=== PATIENT | male | born 1950 | race African-American/Black ===

== ENCOUNTER 2018-03-10 11:47 | Observation (INO) | payer SELFPAY ==
[~2018-03-10] VITALS: Ht 167.6 cm; Wt 94.6 kg
[2018-03-10 12:13] LABS: BASO % 0.6 %; BASO ABS # 0.02 K/uL (0-0.2); EOS % 0.6 %; EOS ABS # 0.02 K/uL (0-0.5); HEMATOCRIT 42.8 % (42-52); HEMOGLOBIN 13.7 g/dL (14.0-18.0); IG# 0.01 K/uL (0.00-0.02); LYMPH % 44.9 %; LYMPH ABS # 1.54 K/uL (1.2-3.4); MEAN CORPUSCULAR HEMOGLOBIN 23.7 pg (25-34); MEAN PLATELET VOLUME 10.7 fL (7.4-10.4); MONO ABS # 0.55 K/uL (0.11-0.59); NEUT % 37.6 %; NEUT ABS # 1.29 K/uL (1.4-6.5); PLATELET COUNT 184 K/uL (130-400); RED CELL DISTRIBUTION WIDTH CV 16.5 % (11.5-14.5); RED CELL DISTRIBUTION WIDTH SD 43.4 fL (36.4-46.3); WHITE BLOOD COUNT 3.43 K/uL (4.8-10.8)
[2018-03-10] MEDS ORDERED: AMLO10TA3 PO (12:30)
[2018-03-10] MEDS ORDERED: DUTA1CAP25 PEG (12:30)
[2018-03-10] MEDS ORDERED: ASPI81TA28 PO (12:30)
[2018-03-10] MEDS ORDERED: VALS160T60 PO (12:30)
--- NOTE | 2018-03-10 12:32 | DIAGNOSTIC IMAGING REPORT ---
CHEST ONE VIEW PORTABLE CLINICAL HISTORY: 68 years-old Male presenting with Chest Pain. TECHNIQUE: Portable upright AP view of the chest was obtained. COMPARISON: None. FINDINGS: Cardiomediastinal silhouette normal. Calcified granulomata noted. No other focal opacity. No large effusion or pneumothorax. Osseous structures normal. Upper abdomen normal. IMPRESSION: 1. No acute cardiopulmonary disease. Electronically signed by: Jesus Fair M.D. 03/10/2018 12:30 PM Dictated Date/Time: 03/10/2018 12:30 PM
[2018-03-10 12:52] LABS: BLOOD UREA NITROGEN 16 mg/dl (7-18); CALCIUM 8.3 mg/dl (8.5-10.1); CARBON DIOXIDE 25 mmol/L (21-32); CKMB 2.2 ng/ml (0.5-3.6); CREATININE 1.07 mg/dl (0.60-1.40); GLUCOSE 147 mg/dl (70-99); SODIUM 134 mmol/L (136-145)
[2018-03-10] MEDS ORDERED: ONDANSETRON INJ 2 MG/ML 2 ML VIAL IV PRN (13:30)
[2018-03-10] MEDS ORDERED: ACETAMINOPHEN 325 MG TAB PO PRN (13:30)
[2018-03-10] MEDS ORDERED: MAGNESIUM HYDROXIDE SUSP 30 ML UDC PO PRN (13:30)
[2018-03-10] MEDS ORDERED: POLYETHYLENE (MIRALAX) 17 GM PACK PO PRN (13:30)
[2018-03-10] MEDS ORDERED: NITROGLYCERIN 0.4 MG SL PER TAB CHARGE SL PRN ×2 (13:30)
[2018-03-10] MEDS ORDERED: ALUMINUM/MAGNESIUM/SIMETH (MAALOX MAX) 30 ML UDC PO PRN (13:30)
[2018-03-10] MEDS ORDERED: ZOLPIDEM TARTRATE 5 MG TAB PO PRN (13:30)
[2018-03-10] MEDS ORDERED: MoRPHine SULFATE 2 MG/ML CARP IV PRN (13:30)
[2018-03-10 13:59] LABS: POTASSIUM 3.6 mmol/L (3.5-5.1)
--- NOTE | 2018-03-10 14:02 | History and Physical ---
History & Physical Date & Time of Service: Mar 10, 2018 at 13:57 Chief Complaint: Chest Pressure/Sob Primary Care Physician: No Doctor, Assigned History of Present Illness Source: patient, hospital records, other 68 y/o M Hx HTN, HPL, BPH, diet-controlled diabetes. Presents with intermittent central CP accompanied by SOB. Denies radiation of the pain, N/V or diaphoresis. He does state that he has had a degree of exertional dyspnea recently. He denies a previous history of coronary disease. His CP was relieved by NTG. On arrival to the ER, an initial EKG was concerning for anterior elevations, however, this was limited to a single lead and without reciprocal changes. Initial troponin was negative, although A POC trop was (+). The pt was evaluated by cardiology who did not feel that this qualified as a STEMI. Past Medical/Surgical History 1) HTN 2) HPL 3) Diet-controlled DM 4) BPH Family History Mother at age 95 owing to sepsis from a lower extremity wound. She may have been diabetic. Father suddenly in his 70s. The cause was not determined. Social History The pt hails from [place]. He is retired and does not have a history of smoking or alcohol use. Smoking Status: Never Smoker Allergies Coded Allergies: No Known Allergies (Unverified , 03/10/18) Home Medications Scheduled Amlodipine (Norvasc), 10 MG PO QAM Aspirin (Aspirin Ec), 75 MG PO DAILY Dutasteride-Tamsulosin HCl (Dutasteride/Tamsulosin Hc 0.5-0.4 mg), 1 CAP PEG DAILY Valsartan/Hctz (Diovan Hct 160MG/25MG), 0.5 TAB PO QAM Review of Systems Constitutional: No fever, No chills, No sweats Eyes: No worsening of vision ENT: No hearing loss, No unusual epistaxis, No nasal symptoms Respiratory: + dyspnea on exertion Cardiovascular: + chest pain Abdomen: No pain, No nausea, No vomiting Musculoskeletal: No joint pain Genitourinary - Male: No hematuria, No dysuria Neurologic: No memory loss, No paralysis Psychiatric: No depression symptoms Hematologic / Lymphatic: No abnormal bleeding/bruising Integumentary: No rash Allergic / Immunologic: No environmental allergies Physical Exam Vital Signs Date Time Temp Pulse Resp B/P (MAP) Pulse Ox O2 Delivery O2 Flow Rate FiO2 03/10/18 13:19 60 14 140/73 97 Room Air 03/10/18 12:04 97 Room Air 03/10/18 11:58 82 03/10/18 11:54 36.7 80 20 138/74 98 Room Air Diagnostics Laboratory Results Results Past 24 Hours Test 03/10/18 11:55 03/10/18 12:01 03/10/18 13:25 03/10/18 13:27 Range/Units White Blood Count 3.43 4.8-10.8 K/uL Red Blood Count 5.78 4.7-6.1 M/uL Hemoglobin 13.7 14.0-18.0 g/dL Hematocrit 42.8 42-52 % Mean Corpuscular Volume 74.0 80-100 fL Mean Corpuscular Hemoglobin 23.7 25-34 pg Mean Corpuscular Hemoglobin Concent 32.0 32-36 g/dl Platelet Count 184 130-400 K/uL Mean Platelet Volume 10.7 7.4-10.4 fL Neutrophils (%) (Auto) 37.6 % Lymphocytes (%) (Auto) 44.9 % Monocytes (%) (Auto) 16.0 % Eosinophils (%) (Auto) 0.6 % Basophils (%) (Auto) 0.6 % Neutrophils # (Auto) 1.29 1.4-6.5 K/uL Lymphocytes # (Auto) 1.54 1.2-3.4 K/uL Monocytes # (Auto) 0.55 0.11-0.59 K/uL Eosinophils # (Auto) 0.02 0-0.5 K/uL Basophils # (Auto) 0.02 0-0.2 K/uL RDW Standard Deviation 43.4 36.4-46.3 fL RDW Coefficient of Variation 16.5 11.5-14.5 % Immature Granulocyte % (Auto) 0.3 % Immature Granulocyte # (Auto) 0.01 0.00-0.02 K/uL Sodium Level 134 136-145 mmol/L Potassium Level 3.5-5.1 mmol/L Chloride Level 106 98-107 mmol/L Carbon Dioxide Level 25 21-32 mmol/L Anion Gap 3.0 3-11 mmol/L Blood Urea Nitrogen 16 7-18 mg/dl Creatinine 1.07 0.60-1.40 mg/dl Estimated GFR () 81.7 Estimated GFR (Non- 70.5 BUN/Creatinine Ratio 15.0 10-20 Random Glucose 147 70-99 mg/dl Calcium Level 8.3 8.5-10.1 mg/dl Total Creatine Kinase 39-308 U/L Creatine Kinase MB 2.2 0.5-3.6 ng/ml Creatine Kinase MB Ratio 0-3.0 Troponin I < 0.015 0-0.045 ng/ml Bedside Troponin I 0.070 0-0.045 ng/ml Prothrombin Time 11.0 9.0-12.0 SECONDS Prothromb Time International Ratio 1.0 0.9-1.1 EKG 1) Sinus - Minimal elevations in V2 - T waves flat in III 2) Anterior elevation in single lead is more pronounced on repeat EKG Impression Assessment and Plan 68 y/o M Hx HTN, HPL, BPH, diet-controlled diabetes. Presents with intermittent central CP accompanied by SOB. Denies radiation of the pain, N/V or diaphoresis. He does state that he has had a degree of exertional dyspnea recently. He denies a previous history of coronary disease. His CP was relieved by NTG. On arrival to the ER, an initial EKG was concerning for anterior elevations, however, this was limited to a single lead and without reciprocal changes. Initial troponin was negative, although A POC trop was (+). The pt was evaluated by cardiology who did not feel that this qualified as a STEMI. 1) CP - suspicious for evolving ischemia. Risk factors of HTN, DM, HPL, age, male - possible family history. Placed on full-dose Heparin, ASA, Statin. His HR has been around 60 so that we have held off on a B davin. Serial enzymes are pending. [employer] Manual [employer] Therapist is consulted and an echo is requested. 2) HTN, HPL - we have increased his statin dose and continued Valsartan/HCTZ for now. 3) DM - diet-controlled - he will be placed on a sliding scale while hospitalized. 4) BPH - Cont Flomax/Dutasteride 5) Microcytic anemia is present on current labs. He may have Thalassemia minor considering his ethnicity. As he is being placed on Heparin, we will repeat an Hb this evening. Full code - Full-dose Heparin Total time for this admit including review of labs, meds, imaging, records - discussion with pt and ER attending - 36 min Resuscitation Status VTE Prophylaxis Will order VTE Prophylaxis: Yes
[2018-03-10] MEDS ORDERED: HEPARIN SOD 5000 UNIT/0.5 ML CARP ONE (14:40)
[2018-03-10] MEDS ORDERED: HEPARIN 25000 UNIT/500 ML D5W ONE (14:41)
[2018-03-10 15:23] LABS: PTT PATIENT 24.3 SECONDS (21.0-31.0)
[2018-03-10] MEDS ORDERED: IV FLUIDS COMPLETED PRN (15:30)
[2018-03-10 15:52] VITALS: O2SAT 99
[2018-03-10 15:53] VITALS: BP 139/75; PULSE 72; TEMP 36.8; O2SAT 96; Ht 167.6 cm; Wt 94.6 kg
[2018-03-10] MEDS ORDERED: PNEUMOCOCCAL POLYSACCHARIDES 25 MCG/0.5 ML VIAL/SYR IM. ONE (16:30)
[2018-03-10] MEDS ORDERED: PNEUMOCOCCAL ADMINISTRATION CHARGE ONE (16:30)
--- NOTE | 2018-03-10 17:51 | Cardiology Consultation ---
Cardiology Consultation Date of Consultation: Mar 10, 2018. Requesting Physician: Liang Reason for Consultation: Chest pain Pt evaluation today including: conversation w/ patient, conversation w/ family , physical exam, chart review, lab review, review of studies, review of inpatient medication list History of Present Illness Patient is a 68-year-old gentleman without a known history of cardiac disease who experienced an episode of chest pressure and mild dyspnea earlier today. Patient was at an agricultural event when he began experience the symptoms. They happened essentially at rest. He was not exerting himself significantly. The symptoms he believes lasted for approximately 20 minutes and resolved when he entered the air condition ambulance. Of note he was also given some nitroglycerin around the same time. The symptoms did not involve radiation to the back, arm or jaw. There was no associated diaphoresis or nausea. He did not report dizziness or lightheadedness. Patient has not experienced similar symptoms in the past. He is an active individual was accustomed to moderate exertion without limiting symptoms or dyspnea or chest pain. At the time of the interview the patient had no symptoms of chest discomfort. He states that his breathing was back to normal. Overall he felt well. Past Medical/Surgical History Glaucoma Hypertension Benign prostatic hypertrophy Past surgical history: None Family History No premature coronary disease Social History Smoking Status: Never Smoker History of Alcohol Use: Yes (occasional red wine) Currently works as a equipment operator/laborer/supervisor on a farm Review of Systems Per HPI. No recent constitutional symptoms such as fevers or chills. No changes bowel or bladder habits. No abdominal discomfort or abdominal symptoms. No frequent heartburn or indigestion. Rare sense of palpitation. This occurred approximately 1 year ago was fleeting in nature. No lower extremity edema. He also reports a history of a murmur. All Other Systems: Reviewed and Negative Allergies Coded Allergies: No Known Allergies (Unverified , 03/10/18) Medications Current Inpatient Medications Medications (Trade) Dose Ordered Sig/Britt Route Start Time Stop Time Status Last Admin Dose Admin Amlodipine Besylate (Norvasc Tab) 10 mg QAM PO 03/11/18 09:00 04/10/18 08:59 Miscellaneous Information (Order Awaiting Action) 1 ea QS N/A 03/11/18 00:00 04/10/18 00:00 Aspirin (Aspirin Chew) 81 mg DAILY PO 03/11/18 09:00 04/10/18 08:59 Atorvastatin Calcium (Lipitor Tab) 40 mg HS PO 03/10/18 21:00 04/09/18 20:59 Acetaminophen (Tylenol Tab) 650 mg Q4H PRN PO 03/10/18 13:30 04/09/18 13:29 Al Hydrox/Mg Hydrox/Simethicone (Maalox Max Susp) 15 ml Q4H PRN PO 03/10/18 13:30 04/09/18 13:29 Magnesium Hydroxide (Milk Of Magnesia Susp) 30 ml Q12H PRN PO 03/10/18 13:30 04/09/18 13:29 Zolpidem Tartrate (Ambien Tab) 5 mg HSZ PRN PO 03/10/18 13:30 04/09/18 13:29 Ondansetron HCl (Zofran Inj) 4 mg Q6H PRN IV 03/10/18 13:30 04/09/18 13:29 Nitroglycerin (Nitrostat Tab) 0.4 mg UD PRN SL 03/10/18 13:30 04/09/18 13:29 Morphine Sulfate (MoRPHine SULFATE INJ) 2 mg Q30M PRN IV 03/10/18 13:30 03/24/18 13:29 Polyethylene (Miralax Powder Packet) 17 gm DAILY PRN PO 03/10/18 13:30 04/09/18 13:29 Miscellaneous (Iv Fluids Completed) 1 ea PRN PRN N/A 03/10/18 15:30 03/10/19 15:29 Valsartan (Diovan Tab) 40 mg QAM PO 03/11/18 09:00 04/10/18 08:59 Hydrochlorothiazide (Hydrochlorothiazide Tab) 6.25 mg QAM PO 03/11/18 09:00 04/10/18 08:59 Physical Exam Vital Signs Past 12 Hours Date Time Temp Pulse Resp B/P (MAP) Pulse Ox O2 Delivery O2 Flow Rate FiO2 03/10/18 15:53 36.8 72 18 139/75 96 Room Air 03/10/18 15:52 66 14 130/82 99 03/10/18 14:55 66 135/85 98 Room Air 03/10/18 13:19 60 14 140/73 97 Room Air 03/10/18 12:04 97 Room Air 03/10/18 11:58 82 03/10/18 11:54 36.7 80 20 138/74 98 Room Air The patient is alert and oriented. Mood and affect appeared normal. He answered all questions appropriately. HEENT: Pupils are equal and reactive to light and accommodation. Extraocular movements are intact. The sclerae are anicteric. Neuro: Cranial nerves intact Neck: Patient's neck is supple. He has palpable carotid pulses bilaterally without bruits on auscultation. There is no evidence of jugular venous distention. The thyroid is not enlarged. Lungs: Clear to auscultation bilaterally. He has good air movement without use of accessory muscles. No rales wheezes or rhonchi. Cardiac: Heart demonstrates a regular rate and rhythm. Normal S1 and S2. Soft holosystolic murmur. Pulses: The patient has palpable radial pulses bilaterally that are equal in intensity Extremities: There was no evidence of hypoperfusion. There is no cyanosis or clubbing. There is no edema. Skin: I did not appreciate any rashes on examination today. Data Laboratory Results: Last 24 Hours Test 03/10/18 11:55 03/10/18 12:01 03/10/18 13:25 03/10/18 13:27 White Blood Count 3.43 K/uL Red Blood Count 5.78 M/uL Hemoglobin 13.7 g/dL Hematocrit 42.8 % Mean Corpuscular Volume 74.0 fL Mean Corpuscular Hemoglobin 23.7 pg Mean Corpuscular Hemoglobin Concent 32.0 g/dl Platelet Count 184 K/uL Mean Platelet Volume 10.7 fL Neutrophils (%) (Auto) 37.6 % Lymphocytes (%) (Auto) 44.9 % Monocytes (%) (Auto) 16.0 % Eosinophils (%) (Auto) 0.6 % Basophils (%) (Auto) 0.6 % Neutrophils # (Auto) 1.29 K/uL Lymphocytes # (Auto) 1.54 K/uL Monocytes # (Auto) 0.55 K/uL Eosinophils # (Auto) 0.02 K/uL Basophils # (Auto) 0.02 K/uL RDW Standard Deviation 43.4 fL RDW Coefficient of Variation 16.5 % Immature Granulocyte % (Auto) 0.3 % Immature Granulocyte # (Auto) 0.01 K/uL Sodium Level 134 mmol/L Potassium Level mmol/L 3.6 mmol/L Chloride Level 106 mmol/L Carbon Dioxide Level 25 mmol/L Anion Gap 3.0 mmol/L Blood Urea Nitrogen 16 mg/dl Creatinine 1.07 mg/dl Estimated GFR () 81.7 Estimated GFR (Non- 70.5 BUN/Creatinine Ratio 15.0 Random Glucose 147 mg/dl Calcium Level 8.3 mg/dl Total Creatine Kinase U/L 133 U/L Creatine Kinase MB 2.2 ng/ml Creatine Kinase MB Ratio Troponin I < 0.015 ng/ml Bedside Troponin I 0.070 ng/ml Prothrombin Time 11.0 SECONDS Prothromb Time International Ratio 1.0 Activated Partial Thromboplast Time 24.3 SECONDS Partial Thromboplastin Ratio 0.9 Test 03/10/18 15:07 Troponin I < 0.015 ng/ml Imaging: Chest x-ray the time of admission not reveal any a cardiopulmonary abnormalities EKG: Normal sinus rhythm. Isolated elevation in lead V2 Telemetry reviewed: No arrhythmia Assessment & Plan 1. Chest pain: Patient's symptoms are certainly concerning for an acute coronary syndrome. They lasted for approximately 20 minutes and then resolved possibly with nitroglycerin. He cannot recall having similar symptoms in the past. He does not report exertional angina. His EKG appeared benign. His cardiac biomarkers are so far normal. Was placed on heparin infusion based primarily on his description of symptoms in the early course of his hospital stay. I think if his 3rd set of markers are normal we can discontinue his heparin. If he has no additional symptoms over the course of the evening would likely perform some noninvasive testing tomorrow. 2. Murmur: Very soft holosystolic murmur on exam. He reports a history of a "weak valve". At some point tomorrow he likely will obtain an echocardiogram.
--- NOTE | 2018-03-10 17:59 | EMERGENCY ROOM VISIT NOTE ---
History Report prepared by Scribe: Italia Lozano Under the Supervision of: Dr. Pedro Ruffin D.O. First contact with patient: 11:51 Stated Complaint: CHEST PRESSURE/SOB History of Present Illness The patient is a 68 year old male who presents to the Emergency Room with complaints of intermittent chest pain since earlier this morning. He was brought to the ED via EMS. He describes his pain as feeling like tightness. He has been short of breath on exertion. In the past 1 hour, his pain worsened, so he called EMS. He was given Aspirin and Nitro in the field, which provided good relief. The patient denies any recent nausea, vomiting, diarrhea or abdominal pain. Patient notes that he has had this pain before the past with exertion. No other exacerbating or remitting factors. Source of History: patient Onset: earlier this morning Position: chest Quality: other ("tightness") Timing: worsening Modifying Factors (Relieving): other (Aspirin and Nitro) Associated Symptoms: + SOB, No nausea, No vomiting, No abdominal pain, No diarrhea Review of Systems See HPI for pertinent positives & negatives. A total of 10 systems reviewed and were otherwise negative. Past Medical & Surgical Medical Problems: (1) Chest pain in adult Current/Historical Medications Scheduled Amlodipine (Norvasc), 10 MG PO QAM Aspirin (Aspirin Ec), 75 MG PO DAILY Dutasteride-Tamsulosin HCl (Dutasteride/Tamsulosin Hc 0.5-0.4 mg), 1 CAP PEG DAILY Valsartan/Hctz (Diovan Hct 160MG/25MG), 0.5 TAB PO QAM Allergies Coded Allergies: No Known Allergies (Unverified , 03/10/18) Physical Exam Vital Signs Date Time Temp Pulse Resp B/P (MAP) Pulse Ox O2 Delivery O2 Flow Rate FiO2 03/10/18 13:19 60 14 140/73 97 Room Air 03/10/18 12:04 97 Room Air 03/10/18 11:58 82 03/10/18 11:54 36.7 80 20 138/74 98 Room Air Physical Exam GENERAL: Sitting up in bed, alert, disheveled appearing, well nourished, no distress, non-toxic EYE EXAM: normal conjunctiva. OROPHARYNX: no exudate, no erythema, lips, buccal mucosa, and tongue normal and mucous membranes are moist NECK: supple, no nuchal rigidity, no adenopathy, non-tender LUNGS: Clear to auscultation. Normal chest wall mechanics HEART: no murmurs, S1 normal and S2 normal ABDOMEN: abdomen soft, non-tender, normo-active bowel sounds, no masses, no rebound or guarding. BACK: Back is symmetrical on inspection and there is no deformity, no midline tenderness, no CVA tenderness. SKIN: no rashes and no bruising UPPER EXTREMITIES: upper extremities are grossly normal. Radial pulses equal bilaterally. LOWER EXTREMITIES: No pitting edema. Calves are equal bilaterally. NEURO EXAM: Normal sensorium, cranial nerves II-XII grossly intact, normal speech, no gross weakness of arms, no gross weakness of legs. Gross sensation intact. Medical Decision & Procedures ER Provider Diagnostic Interpretation: Radiology results as stated below per my review and the radiologist's interpretation: CHEST ONE VIEW PORTABLE CLINICAL HISTORY: 68 years-old Male presenting with Chest Pain. TECHNIQUE: Portable upright AP view of the chest was obtained. COMPARISON: None. FINDINGS: Cardiomediastinal silhouette normal. Calcified granulomata noted. No other focal opacity. No large effusion or pneumothorax. Osseous structures normal. Upper abdomen normal. IMPRESSION: 1. No acute cardiopulmonary disease. Electronically signed by: Jesus Fair M.D. 03/10/2018 12:30 PM Laboratory Results 03/10/18 11:55 Red Blood Count 5.78, Mean Corpuscular Volume 74.0, Mean Corpuscular Hemoglobin 23.7, Mean Corpuscular Hemoglobin Concent 32.0, Mean Platelet Volume 10.7, Neutrophils (%) (Auto) 37.6, Lymphocytes (%) (Auto) 44.9, Monocytes (%) (Auto) 16.0, Eosinophils (%) (Auto) 0.6, Basophils (%) (Auto) 0.6, Neutrophils # (Auto ) 1.29, Lymphocytes # (Auto) 1.54, Monocytes # (Auto) 0.55, Eosinophils # (Auto ) 0.02, Basophils # (Auto) 0.02 03/10/18 11:55 03/10/18 13:27 Test 03/10/18 11:55 03/10/18 12:01 03/10/18 13:25 03/10/18 13:27 White Blood Count 3.43 K/uL (4.8-10.8) Red Blood Count 5.78 M/uL (4.7-6.1) Hemoglobin 13.7 g/dL (14.0-18.0) Hematocrit 42.8 % (42-52) Mean Corpuscular Volume 74.0 fL (80-100) Mean Corpuscular Hemoglobin 23.7 pg (25-34) Mean Corpuscular Hemoglobin Concent 32.0 g/dl (32-36) Platelet Count 184 K/uL (130-400) Mean Platelet Volume 10.7 fL (7.4-10.4) Neutrophils (%) (Auto) 37.6 % Lymphocytes (%) (Auto) 44.9 % Monocytes (%) (Auto) 16.0 % Eosinophils (%) (Auto) 0.6 % Basophils (%) (Auto) 0.6 % Neutrophils # (Auto) 1.29 K/uL (1.4-6.5) Lymphocytes # (Auto) 1.54 K/uL (1.2-3.4) Monocytes # (Auto) 0.55 K/uL (0.11-0.59) Eosinophils # (Auto) 0.02 K/uL (0-0.5) Basophils # (Auto) 0.02 K/uL (0-0.2) RDW Standard Deviation 43.4 fL (36.4-46.3) RDW Coefficient of Variation 16.5 % (11.5-14.5) Immature Granulocyte % (Auto) 0.3 % Immature Granulocyte # (Auto) 0.01 K/uL (0.00-0.02) Anion Gap 3.0 mmol/L (3-11) Estimated GFR () 81.7 Estimated GFR (Non- 70.5 BUN/Creatinine Ratio 15.0 (10-20) Calcium Level 8.3 mg/dl (8.5-10.1) Creatine Kinase MB 2.2 ng/ml (0.5-3.6) Creatine Kinase MB Ratio (0-3.0) Bedside Troponin I 0.070 ng/ml (0-0.045) Prothrombin Time 11.0 SECONDS (9.0-12.0) Prothromb Time International Ratio 1.0 (0.9-1.1) Activated Partial Thromboplast Time 24.3 SECONDS (21.0-31.0) Partial Thromboplastin Ratio 0.9 Total Creatine Kinase 133 U/L (39-308) Laboratory results per my review. Medications Administered ECG Per My Interpretation Indication: chest pain Rate (beats per minute): 74 Rhythm: sinus rhythm Findings: left axis deviation, other (No PVC) Change: Repeat EKG on March 10: Sinus rhythm, rate of 68, LAD, T-wave flattening inferiorly, increased elevation in V2. ED Course ED COURSE: Vital signs were reviewed and showed the patient is hypertensive. The patients medical record was reviewed The above diagnostic studies were performed and reviewed. ED treatments and interventions as stated above. 1158: I discussed the patients case with Dr. Caputo, [facility] Cardiology. The patient was evaluated at bedside secondary to field call for STEMI and recommends admission. 1151: The patient was evaluated in room B9. A complete history and physical examination was performed. 1300: I discussed the patients case with Dr. Caputo, [facility] Cardiology. He recommends no Heparin. 1309: I discussed the patients case with Dr. Tavera, [facility] Hospitalist. The patient will be further evaluated. 1330: Nitroglycerin 0.4 mg SL. 1342: I reevaluated the patient. He states his chest pain has gone away. 1349: I discussed the patients case with Dr. Green, [facility] Interventional Cardiology. The patient will be further evaluated. 1352: Upon reevaluation, the patient is feeling well and states his pain has gone away. I discussed my findings with the patient and he understands and agrees with the treatment plan. Based on the patients age, coexisting illnesses, exam and lab findings the decision to treat as an inpatient was made. The patient remained stable while under my care. The patient will be evaluated for further management. Medical Decision Differential diagnoses includes but is not limited to acute coronary syndrome, myocardial infarction, pericarditis, pulmonary embolus, aortic dissection, pneumonia, pneumothorax, musculoskeletal, shingles, esophageal. Patient is a 68-year-old male who presents to ER with chest pain and shortness of breath. Pain is completely resolved upon arrival. He was given aspirin. We are just taking patient to the [facility] and medics reported that this was a STEMI prior to arrival. Consequently cardiology was available at bedside. Upon review of the EKG no criteria for STEMI which was reviewed by myself and Dr. Caputo at bedside. CBC along with BMP was unremarkable. Lab troponin was negative but POC was positive. Patient was having some additional chest pain and consequently a repeat EKG was obtained. Pain resolved prior to administration of nitro. There was some changes in V2. We discussed with cardiology. They will follow him recommended no STEMI alert at this time. Medication Reconcilliation Current Medication List: was personally reviewed by me Blood Pressure Screening Patient's blood pressure: Elevated blood pressure Blood pressure disposition: Referred to PCP Consults Time Called: 1345 Consulting Physician: Dr. Green [facility] Interventional Cardiology Returned Call: 1349 I discussed the patients case with Dr. Green [facility] Interventional Cardiology. The patient will be further evaluated. Additional Consults: Time Called: 1305 Consulted Physician: Dr. Tavera [facility] Hospitalist Returned Call: 1309 Additional Comments: I [facility] the patients [facility] The patient will be further evaluated. Time Called: 1156 Consulted Physician: Dr. Caputo [facility] Cardiology Returned Call: [phone] Additional Comments: I discussed the patients case with Dr. Caputo [facility] Cardiology. The patient was evaluated at bedside secondary to field call for STEMI and recommends admission. Impression Primary Impression: Precordial chest pain Additional Impression: Acute electrocardiogram changes Scribe Attestation The scribe's documentation has been prepared under my direction and personally reviewed by me in its entirety. I confirm that the note above accurately reflects all work, treatment, procedures, and medical decision making performed by me. Departure Information Dispostion Being Evaluated By Hospitalist Problem Qualifiers
[2018-03-10] MEDS ORDERED: HEPARIN 25,000 UNIT/500ML D5W 500 ML IV SCH (18:00)
[2018-03-10 19:03] VITALS: BP 122/69; PULSE 68; TEMP 36.4; O2SAT 99
[2018-03-10 20:54] VITALS: BP 117/74; PULSE 71
[2018-03-10] MEDS ORDERED: ATORVASTATIN 40 MG TAB PO SCH (21:00)
[2018-03-10 21:02] LABS: PTT PATIENT 105.3 SECONDS (21.0-31.0)
[2018-03-11 00:01] VITALS: BP 103/65; PULSE 65; TEMP 36.6; O2SAT 98
[2018-03-11 04:16] VITALS: BP 101/67; PULSE 68; TEMP 36.5; O2SAT 99
[2018-03-11 04:41] LABS: HEMATOCRIT 42.7 % (42-52); MEAN CELL VOLUME 72.5 fL (80-100); MEAN CORPUSCULAR HEMOGLOBIN 23.8 pg (25-34); MEAN CORPUSCULAR HGB CONC 32.8 g/dl (32-36); MEAN PLATELET VOLUME 9.8 fL (7.4-10.4); PLATELET COUNT 161 K/uL (130-400); RED CELL DISTRIBUTION WIDTH CV 15.5 % (11.5-14.5); RED CELL DISTRIBUTION WIDTH SD 41.2 fL (36.4-46.3); WHITE BLOOD COUNT 4.01 K/uL (4.8-10.8)
[2018-03-11 05:05] LABS: CALCIUM 8.5 mg/dl (8.5-10.1); CREATININE 1.05 mg/dl (0.60-1.40); POTASSIUM 3.5 mmol/L (3.5-5.1)
[2018-03-11 05:18] LABS: PTT PATIENT 81.9 SECONDS (21.0-31.0)
[2018-03-11 08:16] VITALS: BP 107/63; PULSE 63; TEMP 36.5; O2SAT 97
[2018-03-11] MEDS ORDERED: ASPIRIN 81 MG CHEW PO SCH (09:00)
[2018-03-11] MEDS ORDERED: VALSARTAN/HCTZ 80/12.5 MG TAB PO SCH (09:00)
[2018-03-11] MEDS ORDERED: HYDROCHLOROTHIAZIDE 25 MG TAB PO SCH ×2 (09:00)
[2018-03-11] MEDS ORDERED: VALSARTAN 80 MG TAB PO SCH (09:00)
[2018-03-11] MEDS ORDERED: AMLODIPINE BESYLATE 5 MG TAB PO SCH (09:00)
--- NOTE | 2018-03-11 11:42 | EXERCISE STRESS ECHO ---
*NOTICE TO RECEIVING CONSTITUTION PARTY AGENCY This information is strictly Confidential and protected under [place] law. [place] law prohibits you from making any further disclosure of this information unless further disclosure is expressly permitted by the written consent of the person to whom it pertains or is authorized by law. A general authorization for the release of medical or other information is not sufficient for this purpose. Hospital accepts no responsibility if the information is made available to any other person, INCLUDING THE PATIENT. Interpretation Summary * Name: TATE FREEDMAN Study Date: 03/11/2018 09:45 AM BP: 107/63 mmHg * Patient Location: C.2E\S\E206\S\1 HR: 69 * : 1950 (M/d/yyyy) Gender: Male Height: 66 in * Age: 68 yrs Ethnicity: AA Weight: 208 lb * Ordering Physician: Luis Caputo * Referring Physician: Self, Referred * Performed By: Blanche Melara RDCS * * Reason For Study: Chest pain * BSA: 2.0 m2 * -- Conclusions -- * Left ventricular systolic function is normal. * Grade I diastolic dysfunction, (abnormal relaxation pattern). * Aortic valve sclerosis mild, without significant aortic valvular stenosis. * Right ventricular systolic pressure is normal. * Normal exercise echocardiogram without symptoms or evidence of inducible ischemia. Procedure Details * ECHOEX, CPT #[id number] * ECHO DOPPLER, CPT #[id number] * ECHO COLOR FLOW, CPT #[id number] Left Ventricular Findings with Stress * Normal exercise echocardiogram without symptoms or evidence of inducible ischemia. Left Ventricle * The left ventricle is normal in size. * There is normal left ventricular wall thickness. * Ejection Fraction = >70 %. * Left ventricular systolic function is normal. * Grade I diastolic dysfunction, (abnormal relaxation pattern). * The left ventricular wall motion is normal at rest. Right Ventricle * The right ventricle is normal in size and function. Atria * The left atrial size is normal. * Right atrial size is normal. Mitral Valve * The mitral valve anatomy is normal. * Significant mitral regurgitation is absent. Tricuspid Valve * The tricuspid valve is not well visualized, but is grossly normal. * There is trace tricuspid regurgitation. * Right ventricular systolic pressure is normal. Aortic Valve * The aortic valve is trileaflet. * Aortic valve sclerosis mild, without significant aortic valvular stenosis. * The non coronary cusp is poorly mobile * No hemodynamically significant valvular aortic stenosis. * There is no significant aortic regurgitation. Great Vessels * The aortic root is normal size. Pericardium * There is no pericardial effusion. Stress Parameters * Normal baseline electrocardiogram. * Stress ECG: No ST changes. No arrhythmias. * The stress portion of this study was personally supervised by the undersigned interpreting physician. * Rest heart rate was '69' BPM. * Rest blood pressure was '107/63' * Maximum heart rate achieved was 150 bpm. * Maximum heart rate was 99 % of maximum age-predicted heart rate. * Maximum blood pressure was '166/79' * Total exercise time was '6:43' * Maximum exercise MET level achieved was '8.10' METS * Maximum treadmill speed was '3.40' miles per hour. * Maximum treadmill elevation was '14.00'% grade. * Exercise was terminated due to 'achieving target heart rate' Left Ventricular Findings with Stress * Baseline EKG was normal There are no significant ST or T-wave changes during exercise or recovery Baseline echocardiogram demonstrated preserved LV systolic function without regional wall motion abnormalities There was augmentation of all segments without development of regional wall motion abnormalities at peak exertion No symptoms reported Normal hemodynamic response to exercise Mckeon treadmill score: 6.5 (low risk) MMode 2D Measurements and Calculations IVSd 1.1 cm LVIDd 4.1 cm LVIDs 2.2 cm LVPWd 0.97 cm IVS/LVPW 1.1 FS 45.1 % EDV(Teich) 72.5 ml ESV(Teich) 16.7 ml EF(Teich) 76.9 % EDV(cubed) 66.9 ml ESV(cubed) 11.0 ml EF(cubed) 83.5 % LV mass(C)d 131.8 grams LV mass(C)dI 64.8 grams/m\S\2 SV(Teich) 55.8 ml SI(Teich) 27.4 ml/m\S\2 SV(cubed) 55.8 ml SI(cubed) 27.4 ml/m\S\2 Ao root diam 2.8 cm Ao root area 6.3 cm\S\2 ACS 1.9 cm LA dimension 3.6 cm asc Aorta Diam 2.9 cm LA/Ao 1.3 LVOT diam 2.0 cm LVOT area 3.0 cm\S\2 LVAd ap4 24.0 cm\S\2 LVLd ap4 7.7 cm EDV(MOD-sp4) 61.4 ml EDV(sp4-el) 63.6 ml LVAs ap4 12.0 cm\S\2 LVLs ap4 6.7 cm ESV(MOD-sp4) 18.8 ml ESV(sp4-el) 18.2 ml EF(MOD-sp4) 69.3 % EF(sp4-el) 71.3 % LVAd ap2 23.2 cm\S\2 LVLd ap2 8.0 cm EDV(MOD-sp2) 57.5 ml EDV(sp2-el) 57.5 ml LVAs ap2 11.9 cm\S\2 LVLs ap2 6.6 cm ESV(MOD-sp2) 19.1 ml ESV(sp2-el) 18.1 ml EF(MOD-sp2) 66.8 % EF(sp2-el) 68.5 % LVLd %diff 2.9 % EDV(MOD-bp) 60.0 ml LVLs %diff -1.81 % ESV(MOD-bp) 18.7 ml EF(MOD-bp) 68.8 % SV(MOD-sp4) 42.6 ml SI(MOD-sp4) 20.9 ml/m\S\2 SV(MOD-sp2) 38.4 ml SI(MOD-sp2) 18.9 ml/m\S\2 SV(MOD-bp) 41.3 ml SI(MOD-bp) 20.3 ml/m\S\2 SV(sp4-el) 45.4 ml SI(sp4-el) 22.3 ml/m\S\2 SV(sp2-el) 39.4 ml SI(sp2-el) 19.4 ml/m\S\2 Doppler Measurements and Calculations MV E max angelita 76.8 cm/sec MV A max angelita 92.7 cm/sec MV E/A 0.83 MV dec time 0.28 sec Ao V2 max 166.5 cm/sec Ao max PG 11.1 mmHg Ao max PG (full) 5.6 mmHg EDDIE(V,A) 2.1 cm\S\2 EDDIE(V,D) 2.1 cm\S\2 LV V1 max PG 5.5 mmHg LV V1 max 117.3 cm/sec PA V2 max 108.7 cm/sec PA max PG 4.7 mmHg PA acc slope 503.5 cm/sec\S\2 PA acc time 0.14 sec PI max angelita 179.5 cm/sec PI max PG 12.9 mmHg PI dec slope 161.1 cm/sec\S\2 PI P1/2t 326.2 msec TR max angelita 98.4 cm/sec PA pr(Accel) 14.4 mmHg
[2018-03-11] MEDS ORDERED: LPT40 PO (11:43)
--- NOTE | 2018-03-11 11:45 | Discharge Instructions ---
Discharge Instructions Date of Service Mar 11, 2018. Admission Reason for Admission: Chest Pain In Adult Discharge Discharge Diagnosis / Problem: Chest pain Discharge Goals Goal(s): Decrease discomfort Activity Recommendations Activity Limitations: resume your previous activity . Instructions / Follow-Up Instructions / Follow-Up Followup with PCP in 1-2 weeks. Current Hospital Diet Patient's current hospital diet: AHA Diet (Heart Healthy), Diabetes Type 2 Diet Discharge Diet Recommended Diet: AHA Diet (Heart Healthy), Diabetes Type 2 Diet Pending Studies Studies pending at discharge: no Laboratory Results Lipid Panel Test 03/11/18 04:31 Range/Units Triglycerides Level 73 0-150 mg/dl Cholesterol Level 214 H 0-200 mg/dl HDL Cholesterol 53 mg/dl Cholesterol/HDL Ratio 4.0 LDL Cholesterol, Calculated 146 mg/dl Medical Emergencies . Who to Call and When: Medical Emergencies: If at any time you feel your situation is an emergency, please call 911 immediately. . Non-Emergent Contact Non-Emergency issues call your: Primary Care Provider Call Non-Emergent contact if: you have any medication questions . . "Provider Documentation" section prepared by Ar Ochoa. .
[2018-03-11 11:49] VITALS: BP 107/63; PULSE 63; TEMP 36.5; O2SAT 97
--- NOTE | 2018-03-11 11:53 | Cardiology Follow-Up ---
Subjective Date of Service: Mar 11, 2018. Pt evaluation today including: conversation w/ patient, physical exam, chart review, lab review, review of studies, review of inpatient medication list History of Present Illness This morning patient claims to be feeling well. He is anxious for discharge. He did have another episode some very mild chest soreness last night. He states this was similar to what he experienced earlier in the day but of much less severity. It seemed to resolve with nitroglycerin. Social History Smoking Status: Never Smoker History of Alcohol Use: Yes (occasional red wine) Review of Systems Per HPI. No recent constitutional symptoms such as fevers or chills. No changes bowel or bladder habits. No abdominal discomfort or abdominal symptoms. No frequent heartburn or indigestion. Rare sense of palpitation. This occurred approximately 1 year ago was fleeting in nature. No lower extremity edema. He also reports a history of a murmur. Objective Vital Signs Past 12 Hours Date Time Temp Pulse Resp B/P (MAP) Pulse Ox O2 Delivery O2 Flow Rate FiO2 03/11/18 08:16 36.5 63 18 107/63 (78) 97 Room Air 03/11/18 08:05 Room Air 03/11/18 04:16 36.5 68 18 101/67 (78) 99 Room Air 03/11/18 00:01 36.6 65 18 103/65 (78) 98 Room Air Last Recorded Weight-Kilograms: 94.600 Physical Exam The patient is alert and oriented. Mood and affect appeared normal. He answered all questions appropriately. HEENT: Pupils are equal and reactive to light and accommodation. Extraocular movements are intact. The sclerae are anicteric. Neuro: Cranial nerves intact Neck: Patient's neck is supple. He has palpable carotid pulses bilaterally without bruits on auscultation. There is no evidence of jugular venous distention. The thyroid is not enlarged. Lungs: Clear to auscultation bilaterally. He has good air movement without use of accessory muscles. No rales wheezes or rhonchi. Cardiac: Heart demonstrates a regular rate and rhythm. Normal S1 and S2. Soft holosystolic murmur. Pulses: The patient has palpable radial pulses bilaterally that are equal in intensity Extremities: There was no evidence of hypoperfusion. There is no cyanosis or clubbing. There is no edema. Skin: I did not appreciate any rashes on examination today. Data Laboratory Results: Last 24 Hours Test 03/10/18 11:55 03/10/18 12:01 03/10/18 13:25 03/10/18 13:27 White Blood Count 3.43 K/uL Red Blood Count 5.78 M/uL Hemoglobin 13.7 g/dL Hematocrit 42.8 % Mean Corpuscular Volume 74.0 fL Mean Corpuscular Hemoglobin 23.7 pg Mean Corpuscular Hemoglobin Concent 32.0 g/dl Platelet Count 184 K/uL Mean Platelet Volume 10.7 fL Neutrophils (%) (Auto) 37.6 % Lymphocytes (%) (Auto) 44.9 % Monocytes (%) (Auto) 16.0 % Eosinophils (%) (Auto) 0.6 % Basophils (%) (Auto) 0.6 % Neutrophils # (Auto) 1.29 K/uL Lymphocytes # (Auto) 1.54 K/uL Monocytes # (Auto) 0.55 K/uL Eosinophils # (Auto) 0.02 K/uL Basophils # (Auto) 0.02 K/uL RDW Standard Deviation 43.4 fL RDW Coefficient of Variation 16.5 % Immature Granulocyte % (Auto) 0.3 % Immature Granulocyte # (Auto) 0.01 K/uL Sodium Level 134 mmol/L Potassium Level mmol/L 3.6 mmol/L Chloride Level 106 mmol/L Carbon Dioxide Level 25 mmol/L Anion Gap 3.0 mmol/L Blood Urea Nitrogen 16 mg/dl Creatinine 1.07 mg/dl Estimated GFR () 81.7 Estimated GFR (Non- 70.5 BUN/Creatinine Ratio 15.0 Random Glucose 147 mg/dl Calcium Level 8.3 mg/dl Total Creatine Kinase U/L 133 U/L Creatine Kinase MB 2.2 ng/ml Creatine Kinase MB Ratio Troponin I < 0.015 ng/ml Bedside Troponin I 0.070 ng/ml Prothrombin Time 11.0 SECONDS Prothromb Time International Ratio 1.0 Activated Partial Thromboplast Time 24.3 SECONDS Partial Thromboplastin Ratio 0.9 Test 03/10/18 15:07 03/10/18 20:29 03/11/18 04:31 Troponin I < 0.015 ng/ml 0.016 ng/ml 0.015 ng/ml Hemoglobin 14.3 g/dL 14.0 g/dL Activated Partial Thromboplast Time 105.3 SECONDS 81.9 SECONDS Partial Thromboplastin Ratio 4.1 3.2 White Blood Count 4.01 K/uL Red Blood Count 5.89 M/uL Hematocrit 42.7 % Mean Corpuscular Volume 72.5 fL Mean Corpuscular Hemoglobin 23.8 pg Mean Corpuscular Hemoglobin Concent 32.8 g/dl RDW Standard Deviation 41.2 fL RDW Coefficient of Variation 15.5 % Platelet Count 161 K/uL Mean Platelet Volume 9.8 fL Sodium Level 140 mmol/L Potassium Level 3.5 mmol/L Chloride Level 109 mmol/L Carbon Dioxide Level 25 mmol/L Anion Gap 6.0 mmol/L Blood Urea Nitrogen 13 mg/dl Creatinine 1.05 mg/dl Est Creatinine Clear Calc Drug Dose 71.5 ml/min Estimated GFR () 83.5 Estimated GFR (Non- 72.1 BUN/Creatinine Ratio 12.6 Random Glucose 111 mg/dl Calcium Level 8.5 mg/dl Magnesium Level 2.3 mg/dl Triglycerides Level 73 mg/dl Cholesterol Level 214 mg/dl HDL Cholesterol 53 mg/dl LDL Cholesterol, Calculated 146 mg/dl VLDL Cholesterol, Calculated 15 mg/dl Cholesterol/HDL Ratio 4.0 EKG: Normal sinus rhythm. Telemetry reviewed: Sinus rhythm without arrhythmia Stress echocardiogram demonstrated preserved LV systolic function without evidence of inducible ischemia. He did have aortic sclerosis with poor mobility of the non coronary leaflet. No actual aortic stenosis. Assessment and Plan 1. Chest pain: Patient's chest pain is of unclear etiology. Certainly the character suggested coronary ischemia however, he did very well on provocative testing without development of his index symptoms. He reached at good workload without EKG or echocardiographic evidence of ischemia. I think this puts him in the low risk category, especially in light of his normal cardiac biomarkers. I think he is safe for discharge. He should continue aggressive primary prevention of coronary disease. 2. Murmur: This appears to be related to aortic sclerosis. No actual aortic stenosis. 3. Cholesterol: Patient is a predicted 10 year risk of cardiovascular events is 15%. Based on his current lipid profile he would benefit from institution of at least moderate intensity statin therapy.
[2018-03-11 12:32] VITALS: BP 95/58; PULSE 65; TEMP 36.5; O2SAT 97
--- NOTE | 2018-03-20 20:41 | Discharge Summary ---
Discharge Summary Date of Service Mar 11, 2018. Discharge Summary Admission Date: Mar 10, 2018 at 13:31 Discharge Date: Mar 11, 2018 Discharge Disposition: Home Principal Diagnosis: Chest pain Procedures: Echo Exercise stress test Consultations: Cardiology Medication Reconciliation New Medications: Atorvastatin (Lipitor) 40 Mg Tab 40 MG PO HS for 30 Days, #30 TAB Continued Medications: Amlodipine (Norvasc) 10 Mg Tab 10 MG PO QAM, TAB Aspirin (Aspirin Ec) 81 Mg Tab 75 MG PO DAILY Dutasteride-Tamsulosin HCl (Dutasteride/Tamsulosin Hc 0.5-0.4 mg) 1 Cap Cap 1 CAP PEG DAILY Valsartan/Hctz (Diovan Hct 160MG/25MG) 1 Tab Tab 0.5 TAB PO QAM, TAB Patient tAKES vALSARTAN/HCTZ 80/12.5MG ONCE DAILY IN THE MORNING Discharge Exam Review of Systems: Constitutional: No fever Eyes: No worsening of vision ENT: No hearing loss Respiratory: No cough Cardiovascular: + chest pain (admission) Abdomen: No pain Musculoskeletal: No joint pain Neurologic: No memory loss Psychiatric: No depression symptoms Endocrine: No fatigue Hematologic / Lymphatic: No abnormal bleeding/bruising Integumentary: No rash Physical Exam: General Appearance: WD/WN Eyes: normal inspection ENT: normal ENT inspection Neck: supple Respiratory/Chest: chest non-tender, lungs clear Cardiovascular: regular rate, rhythm, no edema Abdomen / GI: normal bowel sounds, non tender, soft Extremities: no calf tenderness Neurologic/Psychiatric: alert, oriented x 3 Skin: normal color Hospital Course History of Present Illness Source: patient, hospital records, other 68 y/o M Hx HTN, HPL, BPH, diet-controlled diabetes. Presents with intermittent central CP accompanied by SOB. Denies radiation of the pain, N/V or diaphoresis. He does state that he has had a degree of exertional dyspnea recently. He denies a previous history of coronary disease. His CP was relieved by NTG. On arrival to the ER, an initial EKG was concerning for anterior elevations, however, this was limited to a single lead and without reciprocal changes. Initial troponin was negative, although A POC trop was (+). The pt was evaluated by cardiology who did not feel that this qualified as a STEMI. Patient had provocative testing done which was negative. Cardio input noted below. 1. Chest pain: Patient's chest pain is of unclear etiology. Certainly the character suggested coronary ischemia however, he did very well on provocative testing without development of his index symptoms. He reached at good workload without EKG or echocardiographic evidence of ischemia. I think this puts him in the low risk category, especially in light of his normal cardiac biomarkers. I think he is safe for discharge. He should continue aggressive primary prevention of coronary disease. 2. Murmur: This appears to be related to aortic sclerosis. No actual aortic stenosis. 3. Cholesterol: Patient is a predicted 10 year risk of cardiovascular events is 15%. Based on his current lipid profile he would benefit from institution of at least moderate intensity statin therapy. Total Time Spent: Greater than 30 minutes This includes examination of the patient, discharge planning, medication reconciliation, and communication with other providers. Discharge Instructions Please refer to the electronic Patient Visit Report (Discharge Instructions) for additional information. Follow-Up as noted in discharge instructions
== END 2018-03-11 14:53 | disposition home or self-care (01) ==
LOC: EDBD 11:47 → C.EDB 11:51 → C.2E 13:31 → ENRESERV 14:03
PROVIDERS: ADMIT Internal Medicine; ATTEND Internal Medicine
DX: R07.9 Chest pain, unspecified (principal); I10 Essential (primary) hypertension; N40.0 Benign prostatic hyperplasia without lower urinary tract symptoms; E11.9 Type 2 diabetes mellitus without complications; E78.5 Hyperlipidemia, unspecified; D50.9 Iron deficiency anemia, unspecified; Z79.899 Other long term (current) drug therapy; Z79.82 Long term (current) use of aspirin